=== PATIENT | female | born 1970 | race Caucasian/White ===

== ENCOUNTER 2022-02-11 14:43 | Observation (INO) ==
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
[2022-02-11] MEDS ORDERED: TYLENOL 500 MG TAB EXTRA STRENGTH PO ONE ×2 (15:31→15:32)
[2022-02-11] MEDS ORDERED: TORADOL 30 MG VIAL IVP ONE (15:54)
[2022-02-11 15:59] LABS: BILIRUBIN,URINE NEGATIVE (NEGATIVE); BLOOD/HEMOGLOBIN,URINE 2+ (NEGATIVE); GLUCOSE, URINE NEGATIVE (NEGATIVE); KETONES,URINE NEGATIVE (NEGATIVE); LEUKOCYTE ESTERASE ,URINE NEGATIVE (NEGATIVE); NITRITES,URINE NEGATIVE (NEGATIVE); PROTEIN,URINE NEGATIVE (NEGATIVE); UROBILINOGEN,URINE 1+ (NORMAL)
[2022-02-11 16:06] LABS: APPEARANCE,URINE CLEAR (CLEAR); COLOR,URINE YELLOW (YELLOW)
[2022-02-11 16:07] LABS: BACTERIA,URINE TRACE /HPF (NEGATIVE); RBC,URINE 0-2 /HPF (0-3); SQUAMOUS EPITHELIAL CELL,UR FEW /HPF (NEGATIVE)
[2022-02-11] MEDS ORDERED: NS 1,000 ML IV 1,000 ML ONE (16:08)
[2022-02-11] MEDS ORDERED: TORADOL 30 MG VIAL ONE (16:08)
[2022-02-11] MEDS: NS 1,000 ML IV 1,000 ML IV SCH (16:22)
[2022-02-11 16:34] LABS: BASOPHILS # (AUTO) 0.1 X10^3/uL (0.0-0.1); BASOPHILS % (AUTO) 0.3 % (0.2-1.0); HEMATOCRIT 33.2 % (36.0-47.0); HEMOGLOBIN 11.3 g/dL (12.0-16.0); LYMPHOCYTES # (AUTO) 0.6 X10^3/uL (1.3-2.9); LYMPHOCYTES % (AUTO) 3.4 % (21.0-51.0); MEAN CORPUSCULAR HEMOGLOBIN 27.6 pg (27.0-34.0); MEAN CORPUSCULAR HGB CONC 33.9 g/dL (33.0-35.0); MEAN CORPUSCULAR VOLUME 81.4 fL (80.0-100.0); MEAN PLATELET VOLUME 8.5 fL (7.4-11.0); MONOCYTES # (AUTO) 0.6 x10^3/uL (0.3-0.8); MONOCYTES % (AUTO) 3.5 % (0.0-13.0); NEUTROPHILS # (AUTO) 16.4 x10^3/uL (2.2-4.8); NEUTROPHILS % (AUTO) 92.8 % (42.0-75.0); RED BLOOD COUNT 4.08 X10^6/uL (3.5-5.4); RED CELL DISTRIBUTION WIDTH 15.6 % (11.6-16.5); WHITE BLOOD COUNT 17.6 X10^3/uL (3.6-10.0)
[2022-02-11 16:47] LABS: ALANINE AMINOTRANSFERASE 55 Units/L (12-78); ALBUMIN 3.2 g/dL (3.4-5.0); ALKALINE PHOSPHATASE 92 Units/L (46-116); ASPARTATE AMINO TRANSFERASE 38 Units/L (15-37); BLOOD UREA NITROGEN 14 mg/dL (7-18); CALCIUM 8.4 mg/dL (8.5-10.1); CARBON DIOXIDE 25.6 mmol/L (21-32); CHLORIDE 98 mmol/L (98-107); CREATININE 0.94 mg/dL (0.55-1.02); SODIUM 134 mmol/L (136-145); TOTAL PROTEIN 6.9 g/dL (6.4-8.2); eGFR NON BLACK RACES > 60 (>60)
--- NOTE | 2022-02-11 16:48 | VAS ---
EXAM: RIGHT LOWER EXTREMITY VENOUS DOPPLER ULTRASOUNDHISTORY: Leg/calf pain/tenderness. Edema. Redness.TECHNIQUE: The lower extremity veins were interrogated with a high-frequency linear transducer, employing grayscale imaging, duplex Doppler and color flow Doppler imaging.COMPARISON: None available.FINDINGS:There is no loss of compressibility, no loss of intraluminal color flow Doppler signal, and no loss of intraluminal duplex Doppler signal within the common femoral vein, superficial femoral vein, popliteal vein, and posterior tibial vein. The findings are inconsistent with deep venous thrombosis in these regions.There is no evidence for luminal thrombosis of the saphenous vein or superficial venous system.No abnormal fluid collection reminiscent of a Salazar's cyst is seen in the popliteal fossa. No evidence for gross inguinal lymphadenopathy is seen.IMPRESSION:1. No evidence for DVT or SVT seen.2. No abnormal fluid collection or Salazar's cyst seen.Electronically signed by: Sosa Butcher (Feb 11, 2022 16:46:35)
[2022-02-11 16:50] LABS: LACTIC ACID 1.8 mmol/L (0.4-2.0)
[2022-02-11 17:03] LABS: PLATELET MORPHOLOGY COMMENT NORMAL (NORMAL)
[2022-02-11] MEDS: ZYVOX 600MG IV 600 MG/300 ML BAG IV SCH (21:09)
[2022-02-12] MEDS: NS 1,000 ML IV 1,000 ML IV SCH ×5 (00:05→21:10)
[2022-02-12] MEDS ORDERED: TYLENOL 325 MG TAB PO ONE (00:09)
[2022-02-12] MEDS: TYLENOL 325 MG TAB PO PRN ×4 (00:14→16:31)
[2022-02-12 03:18] VITALS: BMI 53.1
[2022-02-12 06:26] LABS: BASOPHILS % (AUTO) 0.2 % (0.2-1.0); HEMATOCRIT 30.8 % (36.0-47.0); HEMOGLOBIN 10.3 g/dL (12.0-16.0); LYMPHOCYTES # (AUTO) 0.7 X10^3/uL (1.3-2.9); LYMPHOCYTES % (AUTO) 4.5 % (21.0-51.0); MEAN CORPUSCULAR HEMOGLOBIN 27.4 pg (27.0-34.0); MEAN CORPUSCULAR HGB CONC 33.6 g/dL (33.0-35.0); MEAN CORPUSCULAR VOLUME 81.5 fL (80.0-100.0); MEAN PLATELET VOLUME 8.1 fL (7.4-11.0); MONOCYTES # (AUTO) 0.3 x10^3/uL (0.3-0.8); NEUTROPHILS # (AUTO) 15.6 x10^3/uL (2.2-4.8); NEUTROPHILS % (AUTO) 93.3 % (42.0-75.0); RED BLOOD COUNT 3.78 X10^6/uL (3.5-5.4); RED CELL DISTRIBUTION WIDTH 15.7 % (11.6-16.5); WHITE BLOOD COUNT 16.7 X10^3/uL (3.6-10.0)
[2022-02-12 06:35] LABS: ALANINE AMINOTRANSFERASE 50 Units/L (12-78); ALBUMIN 2.9 g/dL (3.4-5.0); ALKALINE PHOSPHATASE 85 Units/L (46-116); ASPARTATE AMINO TRANSFERASE 30 Units/L (15-37); BLOOD UREA NITROGEN 18 mg/dL (7-18); CARBON DIOXIDE 26.5 mmol/L (21-32); CHLORIDE 96 mmol/L (98-107); COR CA(FOR HYPOALB) 8.9 mg/dL (8.5-10.1); COR NA(FOR HYPERGLY) 131 mmol/L (136-145); CREATININE 1.05 mg/dL (0.55-1.02); MAGNESIUM 1.6 mg/dL (1.7-2.9); SODIUM 130 mmol/L (136-145); TOTAL PROTEIN 6.7 g/dL (6.4-8.2); eGFR NON BLACK RACES 59 (>60)
[2022-02-12 06:50] LABS: BAND NEUTROPHILS % 3 % (0-10)
[2022-02-12 06:51] LABS: PLATELET MORPHOLOGY COMMENT NORMAL (NORMAL)
[2022-02-12] MEDS ORDERED: K-RIDER 10 MEQ/NS 100 ML 10 MEQ/100 ML BAG IV PRN (07:18)
[2022-02-12] MEDS ORDERED: MICRO K EXTEN CAP 10 MEQ PO PRN (07:18)
[2022-02-12] MEDS ORDERED: KLOR-CON PO PRN (07:18)
[2022-02-12] MEDS ORDERED: POTASSIUM CHL 40 MEQ/NS 0.45% 500 ML IV PRN (07:18)
[2022-02-12] MEDS ORDERED: POTASSIUM CHLORIDE LIQ 20 MEQ UDC PO PRN (07:18)
[2022-02-12] MEDS ORDERED: POTASSIUM CHL 60 MEQ/NS 0.45% 500 ML IV PRN (07:18)
[2022-02-12] MEDS ORDERED: K-DUR TAB 20 MEQ PO PRN (07:18)
[2022-02-12] MEDS: ZYVOX 600MG IV 600 MG/300 ML BAG IV SCH ×2 (08:47→20:17)
[2022-02-12] MEDS: MAGNESIUM SULFATE 1 GRAM/100 mL PREMIX 1 G/100 ML BAG IV PRN ×2 (10:05→12:17)
[2022-02-12] MEDS: LOVENOX INJ 40 MG SYR SC SCH (10:42)
--- NOTE | 2022-02-12 11:06 | RAD ---
HISTORYSOBSTUDYPortable AP and lateral chestCOMPARISONNoneFINDINGSSubmitted images of the chest are significantly limited, technically, by portable technique and patient size.The heart is not significantly enlarged. The lungs are grossly clear with no obvious synovial effusion or pulmonary consolidation.IMPRESSIONNo definite abnormality. See above technical limitation. Repeat exam using conventional projections recommended if and when condition allows.Electronically signed by: SALIMA PARRA (Feb 12, 2022 11:03:13)
[2022-02-12] MEDS: NICOTINE PATCH TD SCH (14:58)
--- NOTE | 2022-02-12 17:52 | DR.H&P ---
H&P - History & Physical for Day of: H&P Date: 02/11/22 - Chief Complaint Chief Complaint: RIGHT GROIN PAIN, RIGHT LEG RED AND SWOLLEN - History of Present Illness History of Present Illness: PT IS 51 WF, ER ADMISSION WITH CO RIGHT GROIN PAIN, "FEELS A KNOT" AND LOWER EXTREMITY CELLULITIS. PT DENIES ANY PMH OF HTN, CAD OR DIABETES. PT IS A SMOKER. PT REPORTS FEVER PRIOR TO ADMISSION. PT ADMITTED FOR TREATMENT OF ACUTE ILLNESS. - Past Medical History Additional Medical History: MORBID OBESITY, VENOUS INSUFFICIENCY - Past Surgical History Surgical History: Cholecystectomy, Hysterectomy - Social History Does patient currently use any type of tobacco product: Yes Have you used tobacco products in the last 12 months: Yes Type of Tobacco Use: Cigarettes How many years tobacco product used: 30 Does any household member use tobacco: Yes Alcohol Use: Occasionally Drug Use: None - Medications Home Medications: ondansetron [From Zofran] Allergy (Verified 02/11/22 14:51) CONTINUE taking the following medications NK 02/11/22 [History] - Review of Systems Constitutional: Fever Eyes: No Symptoms Reported ENT: No Symptoms Reported Respiratory: No Symptoms Reported Cardiovascular: Edema Gastrointestinal: No Symptoms Reported Genitourinary: No Symptoms Reported Musculoskeletal: Leg Pain Skin: Rash Neurological: No Symptoms Reported - Physical Exam Vital Signs: Temperature 100 F Pulse Rate [Left Radial] 81 Pulse Rate 100 Respiratory Rate 20 Blood Pressure [Left Arm] 172/81 Blood Pressure 134/67 O2 Sat by Pulse Oximetry 96 Oriented: Normal Eyes: Normal Ear: Normal Nose: Normal Throat: Normal Respiratory: RML Diminished, RLL Diminished, LML Diminished, LLL Diminished Cardiovascular: Normal, Edema : Normal Auscultation: Bowel Sounds: Normal Palpation: Normal Tenderness: RLQ (RIGHT GROIN) Skin: Red, Tender, Hot (RLE) Musculoskeletal: Leg, Swelling, Tender Psychiatric: Normal Mood Description: Calm Speech Pattern: Clear, Appropriate - Assessment/Plan (1) Cellulitis of right leg Status: Acute Plan: ADMIT, IV ATBX. PRN PAIN CONTROL. GENTLE IV HYDRATION, BLOOD CULTURES. VENOUS US ON ADMISSION. DVT PROPHYLAXIS (2) Morbid obesity Status: Acute (3) Right inguinal pain Status: Acute - Allergies Allergies/Adverse Reactions: Allergies Allergy/AdvReac Type Severity Reaction Status Date / Time ondansetron [From Zofran] Allergy Verified 02/11/22 14:51
[2022-02-12 18:12] LABS: HEMOGLOBIN A1C 5.5 %
[2022-02-12 18:21] LABS: TSH (3RD GENERATION) 0.337 uIU/mL (0.358-3.74)
[2022-02-12] MEDS: COLACE CAP 100 MG PO PRN (20:17)
[2022-02-12] MEDS: NORCO 7.5/325 MG TAB PO PRN (20:17)
[2022-02-12] MEDS ORDERED: STERILE WATER IRRIGATION IR ONE (21:36)
[2022-02-13] MEDS: TYLENOL 325 MG TAB PO PRN (00:24)
[2022-02-13 05:06] LABS: BASOPHILS % (AUTO) 0.3 % (0.2-1.0); EOSINOPHILS % (AUTO) 0.4 % (0.9-2.9); HEMATOCRIT 29.2 % (36.0-47.0); HEMOGLOBIN 9.8 g/dL (12.0-16.0); LYMPHOCYTES # (AUTO) 1.3 X10^3/uL (1.3-2.9); LYMPHOCYTES % (AUTO) 11.2 % (21.0-51.0); MEAN CORPUSCULAR HEMOGLOBIN 27.5 pg (27.0-34.0); MEAN CORPUSCULAR HGB CONC 33.6 g/dL (33.0-35.0); MEAN CORPUSCULAR VOLUME 81.9 fL (80.0-100.0); MEAN PLATELET VOLUME 8.4 fL (7.4-11.0); MONOCYTES # (AUTO) 0.6 x10^3/uL (0.3-0.8); MONOCYTES % (AUTO) 4.9 % (0.0-13.0); NEUTROPHILS # (AUTO) 9.6 x10^3/uL (2.2-4.8); NEUTROPHILS % (AUTO) 83.2 % (42.0-75.0); RED BLOOD COUNT 3.56 X10^6/uL (3.5-5.4); RED CELL DISTRIBUTION WIDTH 15.6 % (11.6-16.5); WHITE BLOOD COUNT 11.6 X10^3/uL (3.6-10.0)
[2022-02-13 05:15] LABS: ALANINE AMINOTRANSFERASE 35 Units/L (12-78); ALBUMIN 2.5 g/dL (3.4-5.0); ALKALINE PHOSPHATASE 80 Units/L (46-116); ASPARTATE AMINO TRANSFERASE 13 Units/L (15-37); BLOOD UREA NITROGEN 10 mg/dL (7-18); CALCIUM 8.1 mg/dL (8.5-10.1); CARBON DIOXIDE 28.6 mmol/L (21-32); CHLORIDE 103 mmol/L (98-107); CHOL/HDL RATIO 2.1 (0.0-5.0); CHOLESTEROL 112 mg/dL (0-200); COR CA(FOR HYPOALB) 9.3 mg/dL (8.5-10.1); CREATININE 0.94 mg/dL (0.55-1.02); HDL CHOLESTEROL 53 mg/dL (40-60); SODIUM 137 mmol/L (136-145); TOTAL PROTEIN 6.3 g/dL (6.4-8.2); TRIGLYCERIDES 80 mg/dL (0-150); eGFR NON BLACK RACES > 60 (>60)
[2022-02-13] MEDS: NS 1,000 ML IV 1,000 ML IV SCH ×4 (05:26→21:39)
[2022-02-13] MEDS: NICOTINE PATCH TD SCH (08:11)
[2022-02-13] MEDS: LOVENOX INJ 40 MG SYR SC SCH (08:11)
[2022-02-13] MEDS: ZYVOX 600MG IV 600 MG/300 ML BAG IV SCH ×2 (08:12→20:34)
[2022-02-13] MEDS ORDERED: NS 100 ML IV 100 ML ONE (08:18)
--- NOTE | 2022-02-13 09:17 | CT ---
HISTORYRight inguinal pain/massSTUDYCT pelvis with contrastTechnique: Axial post-contrast images with coronal and sagittal reformats. Dose reduction procedures were used with mA/kv adjusted for body size.COMPARISONNoneFINDINGSThere are multiple but nonenlarged lymph nodes in the right para iliac region of the lower pelvis. There is lymphadenopathy identified in the right inguinal region consisting of nonenlarged and enlarged nodes. Medial to the right common femoral artery is a 5.1 by 2.1 by 2.1 cm oblong non cystic mass. This could represent an enlarged lymph node however other etiologies not excluded. Surrounding the para iliac and inguinal lymphadenopathy there is fairly extensive soft tissue fat stranding and induration. Findings could be on the basis of lymphadenitis. Other etiologies are possible. No other pelvic masses, pelvic fluid, identified. No bladder abnormality is identified. No lytic or blastic skeletal lesions of significance are identified.IMPRESSIONAbnormal distal right para iliac lymphadenopathy and right inguinal lymphadenopathy with surrounding soft tissue induration possibly indicative of acute lymphadenitisMedial to the right common femoral artery is a 5.1 x 2.1 x 2.1 cm oblong non cystic mass of uncertain etiology, possibly an enlarged abnormal lymph node.Electronically signed by: GRACE PLASENCIA (Feb 13, 2022 09:16:14)
[2022-02-13 14:20] LABS: FREE T4 (FREE THYROXINE) 1.25 ng/dL (0.76-1.46)
[2022-02-13] MEDS: ZESTRIL TAB 5 MG PO SCH (17:48)
[2022-02-13] MEDS: NORCO 7.5/325 MG TAB PO PRN (20:35)
[2022-02-13] MEDS: COLACE CAP 100 MG PO PRN (20:35)
[2022-02-14 06:21] LABS: BASOPHILS % (AUTO) 0.6 % (0.2-1.0); EOSINOPHILS # (AUTO) 0.2 x10^3/uL (0.0-0.2); EOSINOPHILS % (AUTO) 2.1 % (0.9-2.9); HEMATOCRIT 27.5 % (36.0-47.0); HEMOGLOBIN 9.5 g/dL (12.0-16.0); LYMPHOCYTES # (AUTO) 1.3 X10^3/uL (1.3-2.9); LYMPHOCYTES % (AUTO) 18.3 % (21.0-51.0); MEAN CORPUSCULAR HEMOGLOBIN 28.2 pg (27.0-34.0); MEAN CORPUSCULAR HGB CONC 34.6 g/dL (33.0-35.0); MEAN CORPUSCULAR VOLUME 81.7 fL (80.0-100.0); MEAN PLATELET VOLUME 8.5 fL (7.4-11.0); MONOCYTES # (AUTO) 0.5 x10^3/uL (0.3-0.8); MONOCYTES % (AUTO) 7.5 % (0.0-13.0); NEUTROPHILS # (AUTO) 5.2 x10^3/uL (2.2-4.8); NEUTROPHILS % (AUTO) 71.5 % (42.0-75.0); RED BLOOD COUNT 3.37 X10^6/uL (3.5-5.4); RED CELL DISTRIBUTION WIDTH 15.6 % (11.6-16.5); WHITE BLOOD COUNT 7.3 X10^3/uL (3.6-10.0)
[2022-02-14] MEDS: NS 1,000 ML IV 1,000 ML IV SCH ×2 (06:21→13:23)
[2022-02-14 06:27] LABS: ALANINE AMINOTRANSFERASE 50 Units/L (12-78); ALBUMIN 2.5 g/dL (3.4-5.0); ALKALINE PHOSPHATASE 91 Units/L (46-116); ASPARTATE AMINO TRANSFERASE 30 Units/L (15-37); BLOOD UREA NITROGEN 8 mg/dL (7-18); CALCIUM 8.3 mg/dL (8.5-10.1); CARBON DIOXIDE 29.1 mmol/L (21-32); CHLORIDE 103 mmol/L (98-107); COR CA(FOR HYPOALB) 9.5 mg/dL (8.5-10.1); CREATININE 0.78 mg/dL (0.55-1.02); SODIUM 136 mmol/L (136-145); TOTAL PROTEIN 6.5 g/dL (6.4-8.2); eGFR NON BLACK RACES > 60 (>60)
[2022-02-14] MEDS: LOVENOX INJ 40 MG SYR SC SCH (08:38)
[2022-02-14] MEDS: ZYVOX 600MG IV 600 MG/300 ML BAG IV SCH ×2 (08:39→20:27)
[2022-02-14] MEDS: ZESTRIL TAB 5 MG PO SCH (08:39)
[2022-02-14] MEDS: NICOTINE PATCH TD SCH (08:39)
[2022-02-14] MEDS ORDERED: MICRO K EXTEN CAP 10 MEQ PO PRN (13:15)
[2022-02-14] MEDS ORDERED: LASIX IVP ONE (13:16)
[2022-02-14] MEDS ORDERED: MICRO K EXTEN CAP 10 MEQ PO ONE (15:22)
[2022-02-14] MEDS: COLACE CAP 100 MG PO PRN (21:43)
[2022-02-14] MEDS: NORCO 7.5/325 MG TAB PO PRN (21:44)
[2022-02-15] MEDS: NS 1,000 ML IV 1,000 ML IV SCH ×3 (05:33→06:19)
[2022-02-15 05:57] LABS: BASOPHILS % (AUTO) 0.5 % (0.2-1.0); EOSINOPHILS # (AUTO) 0.2 x10^3/uL (0.0-0.2); EOSINOPHILS % (AUTO) 3.8 % (0.9-2.9); HEMOGLOBIN 9.9 g/dL (12.0-16.0); LYMPHOCYTES # (AUTO) 1.5 X10^3/uL (1.3-2.9); LYMPHOCYTES % (AUTO) 25.7 % (21.0-51.0); MEAN CORPUSCULAR HEMOGLOBIN 27.7 pg (27.0-34.0); MEAN CORPUSCULAR HGB CONC 34.2 g/dL (33.0-35.0); MEAN PLATELET VOLUME 8.5 fL (7.4-11.0); MONOCYTES # (AUTO) 0.6 x10^3/uL (0.3-0.8); MONOCYTES % (AUTO) 10.2 % (0.0-13.0); NEUTROPHILS # (AUTO) 3.4 x10^3/uL (2.2-4.8); NEUTROPHILS % (AUTO) 59.8 % (42.0-75.0); RED BLOOD COUNT 3.58 X10^6/uL (3.5-5.4); RED CELL DISTRIBUTION WIDTH 15.6 % (11.6-16.5); WHITE BLOOD COUNT 5.7 X10^3/uL (3.6-10.0)
[2022-02-15 06:04] LABS: ALANINE AMINOTRANSFERASE 88 Units/L (12-78); ALBUMIN 2.6 g/dL (3.4-5.0); ALKALINE PHOSPHATASE 117 Units/L (46-116); ASPARTATE AMINO TRANSFERASE 62 Units/L (15-37); BLOOD UREA NITROGEN 8 mg/dL (7-18); CALCIUM 8.3 mg/dL (8.5-10.1); CARBON DIOXIDE 31.6 mmol/L (21-32); CHLORIDE 102 mmol/L (98-107); COR CA(FOR HYPOALB) 9.4 mg/dL (8.5-10.1); CREATININE 0.83 mg/dL (0.55-1.02); SODIUM 138 mmol/L (136-145); TOTAL PROTEIN 6.6 g/dL (6.4-8.2); eGFR NON BLACK RACES > 60 (>60)
[2022-02-15 08:11] VITALS: BP 177/86
[2022-02-15] MEDS: LOVENOX INJ 40 MG SYR SC SCH (09:36)
[2022-02-15] MEDS: NICOTINE PATCH TD SCH (09:37)
[2022-02-15] MEDS: ZYVOX 600MG IV 600 MG/300 ML BAG IV SCH (09:38)
[2022-02-15] MEDS: ZESTRIL TAB 5 MG PO SCH (09:38)
== END 2022-02-15 11:00 | disposition home or self-care (01) ==
LOC: ER 14:43 → MED/SURG 14:43
PROVIDERS: ADMIT Internal Medicine; ATTEND Internal Medicine
DX: I87.2 Venous insufficiency (chronic) (peripheral); L03.115 Cellulitis of right lower limb; B95.62 Methicillin resistant Staphylococcus aureus infection as the cause of diseases classified elsewhere; R06.02 Shortness of breath; R03.0 Elevated blood-pressure reading, without diagnosis of hypertension; L04.3 Acute lymphadenitis of lower limb; Z20.822 Contact with and (suspected) exposure to COVID-19; Z72.0 Tobacco use; R22.41 Localized swelling, mass and lump, right lower limb; N39.0 Urinary tract infection, site not specified; E66.01 Morbid (severe) obesity due to excess calories; R70.0 Elevated erythrocyte sedimentation rate